=== PATIENT | male | born 2000 | race Two or more races ===

== ENCOUNTER 2022-01-18 18:34 | Emergency (ER) | payer SELFPAY ==
[~2022-01-18] VITALS: Ht 185.4 cm; Wt 100.8 kg
[2022-01-19 02:32] VITALS: BP 145/100
== END 2022-01-19 03:55 | disposition left against medical advice (07) ==
LOC: M ED 18:34
DX: Z53.21 Procedure and treatment not carried out due to patient leaving prior to being seen by health care provider (principal)

== ENCOUNTER 2022-02-24 13:01 | Day surgery (SDC) | payer OTHER ==
[~2022-02-24] VITALS: Ht 182.9 cm; Wt 102.1 kg
[~2022-02-24 13:01] MED LIST: IBUP200C28 PO; ceFAZolin SOD 2 GM in IV 1 EA IV ONE
[2022-02-24] MEDS ORDERED: LR 1,000 ML IV SCH ×2 (13:40→18:30)
[2022-02-24] MEDS ORDERED: MIDAZOLAM INJ 2MG/2ML VIAL (J2250 PER 1MG) As Ordered ONE (17:23)
[2022-02-24] MEDS ORDERED: fentaNYL 100 MCG/2 ML INJECTION As Ordered ONE ×2 (17:23→18:02)
[2022-02-24] MEDS ORDERED: dexameTHASONE 4 MG/ML 1ML VIAL (J1100 PER 1MG) As Ordered ONE (17:23)
[2022-02-24] MEDS ORDERED: ONDANSETRON 4MG 2ML VIAL As Ordered ONE (17:23)
[2022-02-24] MEDS ORDERED: propofoL 200 MG/20 ML VIAL As Ordered ONE (17:23)
[2022-02-24] MEDS ORDERED: LIDOCAINE 2% 100MG/5ML SDV (FOR ANES.) As Ordered ONE (17:23)
[2022-02-24] MEDS ORDERED: ISOVUE-300 61% 50ML VIAL As Ordered ONE (17:29)
[2022-02-24] MEDS ORDERED: ACETAMINOPHEN 1000MG 100ML IV BTL (OFIRMEV) (J0131 PER 10MG) As Ordered ONE (17:52)
[2022-02-24] MEDS ORDERED: MORPHINE 2 MG/ML 1ML VIAL IV PRN (18:30)
[2022-02-24] MEDS ORDERED: oxyCODONE 5MG TAB PO PRN (18:30)
[2022-02-24] MEDS ORDERED: ONDANSETRON 4MG 2ML VIAL IV PRN (18:30)
[2022-02-24] MEDS ORDERED: fentaNYL 100 MCG/2 ML INJECTION IV PRN (18:30)
[2022-02-24 19:20] VITALS: BP 143/94
[2022-03-02 18:07] LABS: CA Oxalate Dihy 60 % (.); Ca Ox Monohydrate 40 % (.); Size 7x4 mm (.)
== END 2022-02-24 19:36 | disposition home or self-care (01) ==
LOC: M SDC 13:01
PROVIDERS: ATTEND Urology
DX: N20.1 Calculus of ureter (principal); Z79.899 Other long term (current) drug therapy; Z79.2 Long term (current) use of antibiotics
CPT/HCPCS: 52356; 74420; 82365; C1769; C2617; J0131; J0690; J1100; J2250; J2405; J3010; Q9967

== ENCOUNTER 2025-04-15 09:23 | Day surgery (SDC) | payer OTHER ==
[~2025-04-15] VITALS: Ht 182.9 cm; Wt 113.7 kg
[~2025-04-15 09:23] MED LIST changes: +LIDOCAINE 2% 100 MG/5 ML SDV (FOR ANES.) As Ordered ONE; +MIDAZOLAM INJ 2 MG/2 ML VIAL As Ordered ONE; +ONDANSETRON 4MG/2ML VIAL As Ordered ONE; -ceFAZolin SOD 2 GM in IV 1 EA IV ONE; +dexAMETHasone 4 MG/ML 1 ML VIAL As Ordered ONE; +dexmedeTOMIDine (4 MCG/ML) 200 MCG/50 ML BTL As Ordered ONE
[2025-04-15] MEDS ORDERED: ACETAMINOPHEN 1000MG/100ML IV BAG As Ordered ONE (09:49)
[2025-04-15] MEDS ORDERED: KETOROLAC 30 MG/ML 1 ML VIAL As Ordered ONE (09:49)
[2025-04-15 10:48] VITALS: BP 108/62; TEMP 97.8; O2SAT 94
== END 2025-04-15 11:20 | disposition home or self-care (01) ==
LOC: M SDC 09:23
PROVIDERS: ATTEND Orthopaedic Surgery Hand Surgery
DX: G56.02 Carpal tunnel syndrome, left upper limb (principal)
CPT/HCPCS: 29848; J0131; J0665; J1100; J1885; J2250; J2405; J3010

== ENCOUNTER 2025-05-03 07:10 | Day surgery (SDC) | payer OTHER ==
[~2025-05-03] VITALS: Ht 185.4 cm; Wt 113.2 kg
[~2025-05-03 07:10] MED LIST changes: +KETOROLAC 30 MG/ML 1 ML VIAL As Ordered ONE; -MIDAZOLAM INJ 2 MG/2 ML VIAL As Ordered ONE; -dexmedeTOMIDine (4 MCG/ML) 200 MCG/50 ML BTL As Ordered ONE
[2025-05-03] MEDS ORDERED: MIDAZOLAM INJ 2 MG/2 ML VIAL As Ordered ONE (07:30)
[2025-05-03] MEDS: LR 1,000 ML IV SCH (07:40)
[2025-05-03] MEDS ORDERED: ACETAMINOPHEN 1000MG/100ML IV BAG As Ordered ONE (08:00)
[2025-05-03] MEDS ORDERED: MORPHINE 4 MG/ML 1 ML VIAL IV PRN (08:20)
[2025-05-03] MEDS ORDERED: HYDROMORPHONE HCL 0.5 MG/0.5 ML SYRINGE IV PRN (08:20)
[2025-05-03 09:55] VITALS: BP 129/74; TEMP 97.5; O2SAT 97
== END 2025-05-03 09:57 | disposition home or self-care (01) ==
LOC: M SDC 07:10
PROVIDERS: ATTEND Orthopaedic Surgery Hand Surgery
DX: G56.01 Carpal tunnel syndrome, right upper limb (principal)
CPT/HCPCS: 29848; J0131; J0665; J0688; J1100; J1885; J2250; J2405; J3010